=== PATIENT | male | born 1955 | race American Indian/Alaskan Native ===

== ENCOUNTER 2020-03-06 13:10 | Emergency (ER) | payer SELFPAY ==
[2020-03-06] MEDS ORDERED: IBUPROFEN 800 MG TAB PO ONE (13:57)
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
[2020-03-06 15:02] VITALS: BP 127/80
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
== END 2020-03-06 15:22 | disposition home or self-care (01) ==
LOC: ED 13:10
DX: S20.212A Contusion of left front wall of thorax, initial encounter (principal); F17.200 Nicotine dependence, unspecified, uncomplicated; Z79.899 Other long term (current) drug therapy; Z98.890 Other specified postprocedural states; V49.49XA Driver injured in collision with other motor vehicles in traffic accident, initial encounter; Y93.89 Activity, other specified; Y92.488 Other paved roadways as the place of occurrence of the external cause; Y99.8 Other external cause status
CPT/HCPCS: 93005